=== PATIENT | male | born 1935 ===

== ENCOUNTER 2017-05-19 09:51 | Day surgery (SDC) | payer OTHER, MEDICARE ==
[~2017-05-19] VITALS: Ht 188 cm; Wt 88.5 kg
== END 2017-05-19 15:03 | disposition home or self-care (01) ==
LOC: ORSCSDS 09:51
PROVIDERS: Ophthalmology
PROC: 08BR0ZZ Excision of Left Lower Eyelid, Open Approach (ICD-10-PCS; principal; 2017-05-19 13:00)
PROC: 08RRX7Z Replacement of Left Lower Eyelid with Autologous Tissue Substitute, External Approach (ICD-10-PCS; principal; 2017-05-19 13:00)
PROC: 08SR0ZZ Reposition Left Lower Eyelid, Open Approach (ICD-10-PCS; principal; 2017-05-19 13:00)
PROC: 08N1XZZ Release Left Eye, External Approach (ICD-10-PCS; principal; 2017-05-19 13:00)
DX: H04.522 Eversion of left lacrimal punctum (principal); H02.2 Lagophthalmos; H02.115 Cicatricial ectropion of left lower eyelid; G47.33 Obstructive sleep apnea (adult) (pediatric)
CPT/HCPCS: J0171; J3010; J3301; J7040; J7120